=== PATIENT | female | born 1995 | race Caucasian/White ===

== ENCOUNTER 2024-06-29 01:07 | Emergency (ER) | payer MEDICAID ==
[~2024-06-29] VITALS: Ht 162.6 cm; Wt 94.3 kg
[2024-06-29 01:17] VITALS: BP 109/73; PULSE 77; RESP 16; TEMP 98.3; O2SAT 100
[2024-06-29 01:53] LABS: BILIRUBIN,URINE NEGATIVE (NEGATIVE); BLOOD, URINE NEGATIVE (NEGATIVE); COLOR,URINE YELLOW (YELLOW); LEUKOCYTE ESTERASE ,URINE 1+ (NEGATIVE); NITRITE, URINE NEGATIVE (NEGATIVE); PROTEIN,URINE NEGATIVE (NEGATIVE); UGLUCOSE NEGATIVE (NEGATIVE); UROBILINOGEN,URINE 0.2 EU/dL (0.2 - 1)
[2024-06-29 01:54] LABS: APPEARANCE,URINE SLIGHTLY HAZY (CLEAR)
[2024-06-29 01:56] LABS: RBC,URINE 0 /HPF (0-5)
[2024-06-29 01:57] LABS: BACTERIA,URINE 2+ /HPF (None Seen); MUCUS,URINE None Seen /LPF (None Seen); SQUAMOUS EPITHELIAL CELL,UR 4-10 (MOD) /LPF (0-3 (FEW)); WBC,URINE 0-5 /HPF (0-5)
[2024-06-29] MEDS ORDERED: NITR100C7 PO (02:50)
[2024-06-29 03:08] VITALS: BP 109/73; PULSE 77; RESP 16; TEMP 98.3; O2SAT 100
== END 2024-06-29 03:08 | disposition home or self-care (01) ==
LOC: MED 01:07
DX: O23.43 Unspecified infection of urinary tract in pregnancy, third trimester (principal); N39.0 Urinary tract infection, site not specified; Z3A.28 28 weeks gestation of pregnancy
CPT/HCPCS: 81001; 81025; 87086; 99283